=== PATIENT | female | born 1975 | race Caucasian/White ===

== ENCOUNTER 2016-11-11 11:00 | Emergency (ER) | payer BC, OTHER ==
[~2016-11-11] VITALS: Ht 172.7 cm; Wt 71.0 kg
[2016-11-11 11:04] VITALS: Ht 172.7 cm; Wt 71.0 kg
[2016-11-11 11:43] LABS: ADD UMIC YES; URINE BILIRUBIN (Dip) NEGATIVE (NEGATIVE); URINE BLOOD (Dip) NEGATIVE (NEGATIVE); URINE COLOR LT. YELLOW (YELLOW); URINE GLUCOSE (Dip) NEGATIVE (NEGATIVE); URINE KETONES (Dip) NEGATIVE (NEGATIVE); URINE LEUKOCYTE ESTERASE (Dip) 2+ (NEGATIVE); URINE NITRITE (Dip) NEGATIVE (NEGATIVE); URINE TOTAL PROTEIN (Dip) NEGATIVE (NEGATIVE); URINE UROBILINOGEN (Dip) 0.2 E.U./dL (0.1-1.0)
[2016-11-11 11:44] LABS: BASOPHILS % 0.4 % (0.0-2.0); EOSINOPHILS # 0.1 10^3/ul (0.0-0.5); HEMATOCRIT 40.3 % (37.0-47.0); HEMOGLOBIN 13.6 g/dl (12.0-16.0); LYMPHOCYTES # 1.7 10^3/ul (0.8-2.9); LYMPHOCYTES % 22.3 % (15.0-51.0); MEAN CORPUSCULAR HGB CONC 33.8 g/dl (32.0-37.0); MEAN CORPUSCULAR VOLUME 85.9 fl (82.0-101.0); MEAN PLATELET VOLUME 7.6 fl (7.4-10.4); MONOCYTE # 0.4 10^3/ul (0.3-0.9); NEUTROPHIL # 5.4 10^3/ul (1.6-7.5); NEUTROPHILS % 71.3 % (39.0-77.0); PLATELET COUNT 359 10^3/UL (140-440); RED BLOOD COUNT 4.69 10^6/ul (4.20-5.40); RED CELL DISTRIBUTION WIDTH 12.4 % (11.5-14.5); UNCORRECTED WBC 7.6 10^3/ul (4.8-10.8); WHITE BLOOD COUNT 7.6 10^3/ul (4.8-10.8)
[2016-11-11 11:45] LABS: CONDITION 1
[2016-11-11 12:04] LABS: BACTERIA,URINE MODERATE; SQUAMOUS EPITHELIAL CELL,UR FEW; URINE RBCS 0-2 /HPF (0)
--- NOTE | 2016-11-11 12:24 | RADRPT ---
PROCEDURE: US Obstetrical 1st Trimester CLINICAL INDICATION: The left-sided pelvic pain, 8 weeks TECHNIQUE: Multiple real-time images were acquired of the patient's maternal abdomen utilizing a curved array transducer. COMPARISON: None FINDINGS: The uterus is prominent. There is a well implanted gestational sac within the fundus of the uterus with a mean sac diameter o f 2.0 cm which corresponds to a gestational sac age of 6 weeks 6 days. A large yolk sac is identifie d measuring 1 cm in diameter. There is a single pole with a crown-rump length of a 0.93 cm wh ich corresponds to a gestational age of 7 weeks zero days. No cardiac activity or motion is i dentified. The right ovary measures 4.0 x 3.9 x 3.4 cm. A 3.7 x 3.3 x 2.6 cm simple right ovarian cyst is evid ent. There is also a 1.7 cm right corpus lutein cyst. The left ovary measures 2.3 x 1.6 x 1.2 cm and appears normal. Vascular flow is demonstrated in each ovary. No free fluid is identified. IMPRESSION: 1. demise with the venous the size of the average fetus is 7 weeks 0 days plus or minus 3 days . 2. Large yolk sac. 3. 3.7 cm in maximal diameter simple right ovarian cyst along with a 1.7 cm right corpus lutein cys t. 4. The left ovary appears normal. 5. No free fluid is identified. Findings of demise were telephoned by Rony Nazario MD to ELIZA Lord on 7 and 1220 hours. Physician Marisela Date Time Electronically viewed and signed by Physician Marisela on 11/11/2016 12:24 RH/
[2016-11-11] MEDS ORDERED: NITR-58 PO (13:06)
[2016-11-11 13:20] VITALS: BP 102/57; PULSE 71; RESP 18; TEMP 98.2
--- NOTE | 2016-11-11 13:58 | ERD ---
DATE OF SERVICE: HISTORY OF PRESENT ILLNESS: The patient is a 41-year-old female coming in complaining of pelvic kaye n for the last 2 days. The patient states that she has pain on the left side. She is about 8 weeks . She does not recall the first day of her last normal menstrual period. She states she i s having some left-sided pain that started last night. She has had no vaginal bleeding. G5, P3, A1 . She vomited once this morning. She has normal bowel movements. PAST MEDICAL HISTORY: Denies any other medical problems. ALLERGIES: Denies allergies to medications. SURGICAL HISTORY: Denies. SOCIAL HISTORY: Denies. REVIEW OF SYSTEMS: A 12-point review of systems was done. Refer to HPI for positives, all other sy stems are negative. PHYSICAL EXAMINATION: VITAL SIGNS: Temperature is 97.9, pulse is 67, blood pressure is 99/60, respiratory rate 18, O2 sat uration 100% on room air. Pain intensity is 7/10. GENERAL: The patient is well-appearing, well-nourished, in no acute distress. HEENT: Atraumatic. Conjunctivae are pink. Pupils equal, round, and reactive to light. There is no s cleral icterus. Tympanic membranes clear bilaterally. Oropharynx clear. No nystagmus or photophobia . CHEST: Clear to auscultation bilaterally. There are no rales, wheezes or rhonchi. HEART: Regular rate and rhythm. No murmurs, clicks, rubs or gallops. No S3 or S4. ABDOMINAL EXAM: Normal active bowel sounds heard on auscultation. No distention or organomegaly. The patient has mild tenderness to palpation over the left lower quadrant. EMERGENCY ROOM COURSE: The patient had blood work done in the ER. CBC was within normal limits. B eta quant was 29,051. The patient's urine showed 2+ leukocytes, with 5-10 white blood cells. Blood type is A positive. Obstetric ultrasound showed: 1. Field demise, with venous the size of average fetus is 7 weeks 0 days, plus or minus 3 days. 2. Large yolk sac. 3. A 3.7 cm in maximal diameter simple right ovarian cyst, along with a 1.7-cm right corpus luteal cyst. 4. Left ovary appears normal. 5. No free fluid identified. DIAGNOSES: 1. demise. 2. Urinary tract infection. MEDICAL DECISION MAKING: I have a low suspicion for ectopic . The patient's ultrasound sh ows an IUP with no cardiac activity. No indication for RhoGAM injection, as the patient is Rh posit meseret. The patient does have signs of a urinary tract infection on exam. The patient is not having h eavy bleeding or vaginal bleeding, so I have a low suspicion for hemodynamic instability. DISCHARGE: The patient is discharged stable. Patient was given a prescription for Macrobid and christine d to follow up with her primary care and [facility] [employer] within 1-2 days for reevaluation. The patient was t old if symptoms progress or worsen, to return to the ER. All other questions were answered at the t anabela of discharge. Discharge summary was given at the time of departure. Patient understood and com plied with the plan. Dictated By: CORDELIA KAY for KIM QUINN/NILAM Conf#: [id number] DID#: [id number]
== END 2016-11-11 13:21 | disposition home or self-care (01) ==
LOC: FTE 11:00
DX: O02.1 Missed abortion (principal); R10.2 Pelvic and perineal pain; O23.91 Unspecified genitourinary tract infection in pregnancy, first trimester
CPT/HCPCS: 36415; 76801; 76817; 81001; 84702; 85025; 86900; 86901; Z7502; 81003